=== PATIENT | female | born 1990 ===

== ENCOUNTER → 2024-11-12 | Outpatient (CLI) | payer OTHER ==
[~2024-11-12] MED LIST: CETI10; HYDACE5 PO; MONT10T
[2024-11-12 15:10] LABS: Protein, Urine Quantitative 7.9 mg/dL (0.0-11.9)
== END | disposition home or self-care (01) ==
LOC: LAB SHORT 07:05 → LAB 07:05
PROVIDERS: Advanced Practice Midwife
DX: R03.0 Elevated blood-pressure reading, without diagnosis of hypertension (principal)
CPT/HCPCS: 81050; 84156

== ENCOUNTER → 2025-04-09 | Outpatient (CLI) | payer BC | END | disposition home or self-care (01) | LOC: LAB 12:01 → LAB SHORT 12:01 | DX: O09.93 Supervision of high risk pregnancy, unspecified, third trimester (principal) | CPT/HCPCS: 87081 ==

== ENCOUNTER 2025-05-09 12:05 | Inpatient (IN) | payer BC ==
[~2025-05-09] VITALS: Ht 175.3 cm; Wt 96.4 kg
[2025-05-09 12:23] VITALS: BP 137/86
[2025-05-09 12:38] VITALS: BP 140/77
[2025-05-09] MEDS ORDERED: Tranexamic Acid 100 ML IV SCH (13:10)
[2025-05-09] MEDS ORDERED: OXYTOCIN/RINGER'S LACTATE 500 ML IV PRN (13:10)
[2025-05-09] MEDS ORDERED: Carboprost Tromethamine 250 MCG/ML 1ML Amp IM PRN (13:10)
[2025-05-09] MEDS ORDERED: Ondansetron HCl 2 MG / ML 2ML Vial IV PRN (13:10)
[2025-05-09] MEDS ORDERED: Methylergonovine Maleate 0.2MG / ML 1ML Amp IM PRN (13:10)
[2025-05-09] MEDS ORDERED: Oxytocin 10 Unit / ML Vial IM PRN (13:10)
[2025-05-09] MEDS ORDERED: PRENATAL TABLE1 EAC2 PO (13:21)
[2025-05-09 13:38] VITALS: BP 135/91
[2025-05-09] MEDS ORDERED: ePHEDrine Sulfate 50 MG/ML 1ML Injection XX PRN (14:30)
[2025-05-09] MEDS ORDERED: FentaNYL 2mcg/ml-Bup 0.1% Epd 250 ML EPI PRN (14:30)
[2025-05-09 14:43] LABS: BASOPHILS ABSOLUTE AUTO 0.02 K/mm3 (0.00-0.23); BASOPHILS PERCENT AUTO 0 % (0-2); EOSINOPHILS ABSOLUTE AUTO 0.00 K/mm3 (0.00-0.68); EOSINOPHILS PERCENT AUTO 0 % (0-6); Hematocrit 35.9 % (33.0-51.0); Hemoglobin 12.1 g/dL (11.5-16.0); IMMATURE GRAN ABSOLUTE AUTO 0.10 K/mm3 (0.00-0.10); IMMATURE GRAN PERCENT AUTO 1 % (0-1); LYMPHOCYTES ABSOLUTE AUTO 1.26 K/mm3 (0.84-5.20); LYMPHOCYTES PERCENT AUTO 11 % (21-46); MONOCYTES ABSOLUTE AUTO 0.55 K/mm3 (0.16-1.47); MONOCYTES PERCENT AUTO 5 % (4-13); Mean Corpuscular HGB Conc 33.7 g/dL (31.5-36.5); Mean Corpuscular Volume 90 fL (80-100); NEUTROPHILS ABSOLUTE AUTO 9.93 K/mm3 (1.96-9.15); NEUTROPHILS PERCENT AUTO 84 % (41-73); NRBC ABSOLUTE 0.00 K/mm3 (0.00-0.02); NRBC Auto 0.0 /100 WBC (0.0-0.2); Platelet Count 181 K/mm3 (150-400); RDW Coefficient Variation 13.8 % (11.7-14.2); RDW Standard Deviation 45.8 fL (35.1-46.3)
[2025-05-09 16:36] VITALS: BP 136/95
[2025-05-09 17:59] VITALS: BP 133/84
[2025-05-09 22:23] VITALS: BP 130/73
[2025-05-10] VITALS (24 sets, daily range): BP systolic 118–145; BP diastolic 64–91
[2025-05-10] MEDS ORDERED: FentaNYL Citrate 50 MCG/ML 2 ML Injection ONE (10:09)
[2025-05-10] MEDS ORDERED: OXYTOCIN/RINGER'S LACTATE 500 ML IV SCH ×2 (11:15→15:25)
[2025-05-10] MEDS ORDERED: Witch Hazel/Glycerin PADS TOP PRN (15:20)
[2025-05-10] MEDS ORDERED: FLU VACC TS2025-26(6MOS UP)/PF 45 MCG/0.5 ML SYRINGE IM SCH (15:20)
[2025-05-10] MEDS ORDERED: Carboprost Tromethamine 250 MCG/ML 1ML Amp IM PRN (15:25)
[2025-05-10] MEDS ORDERED: Ketorolac Tromethamine 30mg Vial IV PRN (15:25)
[2025-05-10] MEDS ORDERED: Benzocaine Topical Anesthetic Spray 60GM TOP PRN (15:30)
[2025-05-10] MEDS ORDERED: Rho(D) Immune Globulin 300 MCG / SYR IM ONE (15:30)
[2025-05-10] MEDS ORDERED: Methylergonovine Maleate 0.2MG / ML 1ML Amp IM PRN (15:30)
[2025-05-11 00:18] VITALS: BP 123/78
[2025-05-11 07:16] VITALS: BP 128/83
[2025-05-11] MEDS ORDERED: Prenatal Vit/FE Fumarate/FA 1 Tab PO SCH (09:00)
[2025-05-11 12:24] VITALS: BP 133/81
[2025-05-11 16:55] VITALS: BP 132/82
== END 2025-05-11 17:35 | disposition home or self-care (01) | DRG 806 ==
LOC: BC 12:05 → OBS 12:05 → BC 12:54
PROVIDERS: ADMIT Advanced Practice Midwife
PROC: 10E0XZZ Delivery of Products of Conception, External Approach (ICD-10-PCS; principal; 2025-05-10)
PROC: 0KQM0ZZ Repair Perineum Muscle, Open Approach (ICD-10-PCS; 2025-05-10)
PROC: 3E02340 Introduction of Influenza Vaccine into Muscle, Percutaneous Approach (ICD-10-PCS; 2025-05-10)
DX: O48.0 Post-term pregnancy (principal); O99.324 Drug use complicating childbirth; Z37.0 Single live birth; Z3A.40 40 weeks gestation of pregnancy; F12.90 Cannabis use, unspecified, uncomplicated; O76 Abnormality in fetal heart rate and rhythm complicating labor and delivery; O16.4 Unspecified maternal hypertension, complicating childbirth; J45.909 Unspecified asthma, uncomplicated; O99.52 Diseases of the respiratory system complicating childbirth; O77.0 Labor and delivery complicated by meconium in amniotic fluid; O70.1 Second degree perineal laceration during delivery; Z87.891 Personal history of nicotine dependence; Z98.890 Other specified postprocedural states
CPT/HCPCS: 36415; 51702; 81003; 85025; 86850; 86900; 86901; 99214; A9270; J1885; J2590; J7120